=== PATIENT | female | born 2005 | race Two or more races ===

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

== ENCOUNTER 2025-08-31 13:37 | Emergency (ER) | payer OTHER, MEDICAID ==
[~2025-08-31] VITALS: Ht 154.9 cm; Wt 65.0 kg
[2025-08-31 14:20] LABS: Hematocrit 42.7 % (36.0-46.0); Hemoglobin 14.2 g/dL (12.2-16.2); Mean Corpuscular Hemoglobin 30.7 pg (28.0-32.0); Mean Corpuscular Volume 91.9 fL (80.0-100.0); Nucleated Red Blood Cells % 0.1 %
[2025-08-31 14:33] LABS: Chloride 104 mmol/L (98-107); Potassium 4.2 mmol/L (3.5-5.1); Sodium 142 mmol/L (136-145)
[2025-08-31 14:34] LABS: Anion Gap 9 (5-15); Calcium 9.6 mg/dL (8.7-10.4); Carbon Dioxide 29 mmol/L (20-31)
[2025-08-31 14:39] LABS: BUN/Creatinine Ratio 11.1 (10.0-20.0); Blood Urea Nitrogen 11 mg/dL (9-23); Glucose 103 mg/dL (74-106)
--- NOTE | 2025-08-31 14:40 | ED.PDOC ---
GI ASSESSMENT HPI Comments A 20 YEAR OLD FEMALE PRESENTS TO THE ED WITH COMPLAINT OF ABDOMINAL PAIN. PATIENT REPORTS THAT SHE HAS BEEN EXPERIENCING SUPRAPUBIC ABDOMINAL PAIN WITH ASSOCIATED RADIATION INTO HER LOWER BACK AND VAGINAL DISCHARGE FOR THE PAST 3 DAYS. PATIENT RELAYS THAT SHE RECENTLY TESTED POSITIVE FOR A STI. PATIENT STATES HER LMP WAS 2 WEEKS AGO. PATIENT DENIES FEVER, CHILLS, DYSURIA, HEMATURIA, FLANK PAIN, SHORTNESS OF BREATH, CHEST PAIN, NAUSEA, VOMITING, HEADACHE, OR OTHER COMPLAINTS. NO OTHER SYMPTOMS OR MODIFYING FACTORS AT THIS TIME. PATIENT IS ALERT, ORIENTED X 4, AND HAS STEADY GAIT. Chief Complaint: Abdominal Pain Time Seen by MD: 14:38 Reviewed Notes: Nurses Notes, Medications, Allergies Allergies: Coded Allergies: Amoxicillin (Verified Allergy, Unknown, 01/25/24) Home Meds Active Scripts Lactulose (Lactulose) 10 Gm/15 Ml Marissa, 30 ML PO BID, #250 ML Prov:MADELEINE BAILEY 08/31/25 Naproxen (Naproxen) 500 Mg Tab, 500 MG PO BID, #30 TAB Prov:MADELEINE BAILEY 08/31/25 Sulfamethoxazole-Trimethoprim (Bactrim) 1 Tab Tab, 1 TAB PO BID for 10 Days, #20 TAB Prov:XENIA SWEENEYA Q PAPIER MACHE' MOLDER 01/26/24 Ondansetron Odt 4MG Tab (ZOFRAN PO) 4 Mg Tb, 1 TAB PO Q8HPRN PRN, #10 TAB as needed for nausea vomiting ODT TAB-DISSOLVE IN MOUTH, THEN SWALLOW Prov:MARVIN SWEENEYALDA Q PAPIER MACHE' MOLDER 01/26/24 Ibuprofen (Ibuprofen) 600 Mg Tab, 1 TAB PO TID, #30 TAB as needed for fever or pain Prov:TOMEKA SWEENEY PAPIER MACHE' MOLDER 01/26/24 Information Source: Patient Mode of Arrival: Ambulatory Timing: Days Duration: Since onset Prehospital treatment: None Quality: Sharp Vomitus: Firm, Hard Stool: Normal Severity: Moderate Recent: None Recent Hx of: None Pain Location: Suprapubic Modifying Factors: Nothing Associated sign and symptoms: Constipation, Abdominal Pain Past Medical History PAST MEDICAL HISTORY: Anxiety Surgical History (Other): RIGHT KIDNEY SURGERY BRUSH MATERIAL PREPARER History: No Pertinent BRUSH MATERIAL PREPARER History Family History Family History: Reviewed,noncontributory to illness Social History Smoker: Non-Smoker Alcohol: Heavy Drugs: Cocaine Lives In: Home Constitutional: denies: chills, diaphoresis, fatigue, fever, malaise, sweats, weakness, others EENTM: denies: blurred vision, double vision, ear bleeding, ear discharge, ear drainage, ear pain, ear ringing, eye pain, eye redness, hearing loss, mouth pain, mouth swelling, nasal discharge, nose bleeding, nose congestion, nose pain, photophobia, tearing, throat pain, throat swelling, voice changes, others Respiratory: denies: cough, hemoptysis, orthopnea, SOB at rest, shortness of breath, SOB with excertion, stridor, wheezing, others Cardiovascular: denies: chest pain, dizzy spells, diaphoresis, Dyspnea on exertion, edema, irregular heart beat, left arm pain, lightheadedness, palpitations, PND, syncope, others Gastrointestinal: reports: abdominal pain, constipated; denies: abdomen di stended, blood streaked bowels, diarrhea, dysphagia, difficulty swallowing, hematemesis, melena, nausea, poor appetite, poor fluid intake, rectal bleeding, rectal pain, vomiting, others Genitourinary: reports: vagina discharge; denies: abnormal vagina bleeding, burning, dyspareunia, dysuria, flank pain, frequency, hematuria, incontinence, pain, , urgency, others Neurological: denies: dizziness, fainting, headache, left sided numbness, left sided weakness, numbness, paresthesia, pre-existing deficit, right sided numbness, right sided weakness, seizure, speech problems, tingling, tremors, weakness, others Musculoskeletal: reports: back pain, muscle pain; denies: gout, joint pain, joint swelling, muscle stiffness, neck pain, others Integumetry: denies: bruises, change in color, change in hair/nails, dryness, laceration, lesions, lumps, rash, wounds, others Allergic/Immunocompromised: denies: Difficulty Healing, Frequent Infections, Hives, Itching, others Hematologic/Lymphatic: denies: anemia, blood clots, easy bleeding, easy bruising, swollen glands, others Endocrine: denies: excessive hunger, excessive sweating, excessive thirst, excessive urination, flushing, intolerance to cold, intolerance to heat, unexplained weight gain, unexplained weight loss, others Psychiatric: denies: anxiety, bipolar disorder, depression, hopeless, panic disorder, schizophrenia, sleepless, suicidal, others All Other Systems: Reviewed and Negative Physical Exam General Appearance: No Apparent Distress, Normal HEENT: Normal ENT Inspection, PERRL/EOMI, Pharynx Normal, TMs Normal Neck: Full Range of Motion, Non-Tender, Normal, Normal Inspection Respiratory: Chest Non-Tender, Lungs Clear, No Accessory Muscle Use, No Respiratory Distress, Normal Breath Sounds Cardiovascular: No Edema, No JVD, No Murmur, No Gallop, Normal Peripheral Pulses, Regular Rate/Rhythm Breast Exam: Deferred Gastrointestinal: LLQ, No Organomegaly, No Pulsatile Mass, Normal Bowel Sounds, RLQ, Soft, Tenderness (LOWER ABD, NO GUARDING AND REBOUND TENDERNESS. ) Genitalia: Deferred Pelvic: Deferred Rectal: Deferred Extremities: No calf tenderness, Normal capillary refill, Normal inspection, Normal range of motion, Non-tender, No pedal edema Musculoskeletal : Apperance: Normal Neurologic: Alert, filling hauler weaving II-XII nml as Tested, No Motor Deficits, Normal Affect, Normal Mood, No Sensory Deficits Cerebellar Function: Normal Reflexes: Normal Skin: Dry, Normal Color, Warm Peripheral Pulses: 2+ carotid (R), 2+ carotid (L) Lymphatic: No Adenopathy Was a procedure done? Was a procedure done?: No GI differential Dx Differential Diagnosis: Appendicitis, Constipation, Gastritis/PUD, Gastroenteritis, Inflammatory BD, UTI, Urolithiasis X-Ray, Labs, Meds, VS Vital Signs Date Time Temp Pulse Resp B/P (MAP) Pulse Ox O2 Delivery O2 Flow Rate FiO2 08/31/25 13:44 98.3 94 15 128/78 98 98.3 Lab Test 08/31/25 14:36 08/31/25 14:13 Range/Units Urine Color Light-yellow Yellow Urine Clarity Clear Clear Urine pH 6.0 5.0-9.0 Urine Specific [place] 1.027 1.001-1.035 Urine Protein Negative Negative Urine Ketones Trace Negative Urine Blood Negative Negative /uL Urine Nitrite Negative Negative Urine Bilirubin Negative Negative Urine Urobilinogen Normal Negative mg/dL Urine Leukocyte Esterase Trace Negative /uL Urine RBC 2 0 - 4 /hpf Urine Microscopic WBC 3 0-5 /HPF Urine Squamous Epithelial Cells Mod <5 /hpf Urine Bacteria None seen None Seen /hpf Urine Glucose Normal Normal mg/dL White Blood Count 5.8 4.4-10.8 10^3/uL Red Blood Count 4.64 4.0-5.20 10^6/uL Hemoglobin 14.2 12.2-16.2 g/dL Hematocrit 42.7 36.0-46.0 % Mean Corpuscular Volume 91.9 80.0-100.0 fL Mean Corpuscular Hemoglobin 30.7 28.0-32.0 pg Mean Corpuscular Hemoglobin Concent 33.4 32.0-36.0 g/dL Red Cell Distribution Width 13.3 11.8-14.3 % Platelet Count 238 140-450 10^3/uL Mean Platelet Volume 7.7 6.9-10.8 fL Neutrophils (%) (Auto) 60.2 37.0-80.0 % Lymphocytes (%) (Auto) 25.9 10.0-50.0 % Monocytes (%) (Auto) 11.7 0.0-12.0 % Eosinophils (%) (Auto) 1.7 0.0-7.0 % Basophils (%) (Auto) 0.5 0.0-2.0 % Neutrophils # (Auto) 3.5 1.6-8.6 10 ^3/uL Lymphocytes # (Auto) 1.5 0.4-5.4 10 ^3/uL Monocytes # (Auto) 0.7 0-1.3 10 ^3/uL Eosinophils # (Auto) 0.1 0-0.8 10 ^3/uL Basophils # (Auto) 0 0-0.2 10 ^3/uL Nucleated Red Blood Cells 0.1 % Sodium Level 142 136-145 mmol/L Potassium Level 4.2 3.5-5.1 mmol/L Chloride Level 104 98-107 mmol/L Carbon Dioxide Level 29 20-31 mmol/L Anion Gap 9 5-15 Blood Urea Nitrogen 11 9-23 mg/dL Creatinine 0.99 0.550-1.02 mg/dL Glomerular Filtration Rate Calc 84 >90 mL/min BUN/Creatinine Ratio 11.1 10.0-20.0 Serum Glucose 103 74-106 mg/dL Calcium Level 9.6 8.7-10.4 mg/dL [facility] [id number] [facility] [id number] Ph: [phone] DIAGNOSTIC IMAGING Diagnostic Imaging Report : [id number] Signed PATIENT: MORSENATHALY Shah ACCT: [id number] UNIT: [id number] : 2005 LOC: ER ROOM / BED: / AGE / SEX: 20 / F ADM STATUS: REG ER SERVICE [id number] ORDERING PHYSICIAN: MADELEINE BAILEY PROCEDURE(s): ABPL - CT AB PEL WO CON-NO ORAL OR IV REASON: LOWER ABD PAIN TO LOWER BACK ORDER NUMBER(s): [id number], ACCESSION NUMBER(s): [id number] CLINICAL HISTORY: LOWER ABD PAIN TO LOWER BACK TECHNIQUE: CT of the abdomen and pelvis was performed without IV contrast. This exam was performed according to our departmental dose optimization program. Up-to-date CT equipment and radiation dose reduction techniques are utilized as appropriate. CTDI 9.6 DLP 511 COMPARISON: None FINDINGS: Abdomen/Pelvis: The spleen, pancreas, gallbladder, liver, adrenal glands, left kidney, and uterus are grossly unremarkable. The bladder is not well distended and therefore not well evaluated. The right kidney is poorly seen and appears atrophic at its upper 1/2. There are surgical clips present with a 3.1 cm hypodense lesion at the right upper pole, not adequately assessed. The abdominal aorta is normal in course and caliber. There are no significant atherosclerotic calcifications. There is no free intraperitoneal air or fluid. There is no enlarged abdominal pelvic lymph node. There is no bowel wall thickening or dilatation. The appendix is normal. There is a moderate amount of stool in the colon. Other: The imaged lower thorax is unremarkable. No acute osseous abnormality is evident. IMPRESSION: No acute noncontrast CT abnormality in the abdomen / pelvis. Atrophic right upper kidney with surgical clips and 3.1 cm hypodense lesion, not adequately assessed due to lack of IV contrast. Constipation. ATED BY: ELIZABETH BENITO MD DICTATED DATE/TIME: 08/31/25 152 SIGNED BY: ELIZABETH BENITO MD SIGNED DATE/TIME: 08/31/251525 CC: X-Ray, Labs, Meds, VS Comment EXTERNAL MEDICAL RECORDS REVIEWED: [NONE] INDEPENDENT HISTORIANS: [NONE] SOCIAL DETERMINANTS OF HEALTH: [NONE] LABS ORDERED: CBC, BMP, UA REVIEWED AND INTERPRETED RESULTS: CT ABD/PEL IMAGING ORDERED: CT ABD/PEL TREATMENTS ORDERED: NONE PROCEDURES PERFORMED: NONE CRITICAL CARE TIME: NONE I HAVE DISCUSSED THE PATIENT WITH THE ATTENDING PHYSICIAN DR. HAIRSTON AND HE AGR EES WITH THE PATIENT'S PLAN OF CARE AND DISPOSITION. BASED ON HISTORY OF PRESENT ILLNESS, AND PHYSICAL EXAM, PATIENT WILL BE DI SCHARGED HOME. DISCUSSED PLAN FOR DISCHARGE HOME WITH RX [NAPROXEN AND LACTULOSE ]. MEDICATION WARNINGS GIVEN. SHARED DECISION MAKING: DISCUSSED WITH PATIENT THAT THEIR WORKUP WAS NORMAL. PATIENT INSTRUCTED TO FOLLOW UP WITH PRIMARY CARE PROVIDER IN 1-2 DAYS FOR RE- EVALUATION OF SYMPTOMS. PATIENT VERBALIZES UNDERSTANDING TO RETURN TO ED FOR NEW OR WORSENING SYMPTOMS OR IF FOLLOW UP WITH PCP CANNOT BE OBTAINED. PATIENT FEELS COMFORTABLE GOING HOME AT THIS TIME. ALL QUESTIONS ADDRESSED AT TIME OF DISCHARGE. Time of 1ST Reevaluation: 15:00 Reevaluation 1ST: Unchanged Patient Education/Counseling: Diagnosis, Treatment Family Education/Counseling: No Family Present SEPSIS Sepsis Screen Date sepsis recognized/suspect: Aug 31, 2025 Time Sepsis recognized/suspect: 1346 Recent Procedure: No On Antibiotic Therapy: No Respiratory Rate >20: No Heart Rate >90: No Temp<36 C (96.8 F) or >38.3 C: No SBP <90 or MAP <65 mmHG: No New Acute Mental Status Change: No Is the patient on CPAP, BIPAP,: No Physician Orders Ct Ab Pel Wo Con-No Oral Or Iv (08/31/25 14:39) Vital Signs Date Time Temp Pulse Resp B/P (MAP) Pulse Ox O2 Delivery O2 Flow Rate FiO2 08/31/25 13:44 98.3 94 15 128/78 98 98.3 Laboratory Tests Test 08/31/25 14:13 White Blood Count 5.8 10^3/uL (4.4-10.8) Departure 1 Departure Time of Disposition: 16:00 Impression: Primary Impression: Constipation Qualified Codes: K59.00 - Constipation, unspecified Additional Impression: Lesion of right [place] kidney Disposition: HOME / SELF CARE / HOMELESS Condition: Stable Additional Instructions: FOLLOW-UP WITH PCP IN 1 TO 2 DAYS. TAKE MEDICATIONS PRESCRIBED. RETURN TO ED FOR ANY NEW OR WORSENING SYMPTOMS. e-Prescriptions Lactulose (Lactulose) 10 Gm/15 Ml Marissa 30 ML PO BID, #250 ML Prov: MADELEINE BAILEY 08/31/25 Naproxen (Naproxen) 500 Mg Tab 500 MG PO BID, #30 TAB Prov: MADELEINE BAILEY 08/31/25 Discharged With: Self Critical Care Note Critical Care Time?: No Stability Stability form required: No Heart Score Heart Score: Heart Score Response (Comments) Value History N/A 0 EKG N/A 0 Age N/A 0 Risk Factors N/A 0 Troponin N/A 0 Total 0 I personally scribed for MADELEINE BAILEY ([email or web address]) on 08/31/25 at 14:40. Electronically submitted by Eliseo Hernandez ([email or web address]). I personally scribed for MADELEINE BAILEY ([email or web address]) on 08/31/25 at 15:37. Electronically submitted by Eliseo Hernandez ([email or web address]). MADELEINE BAILEY Aug 31, 2025 14:40
[2025-08-31 14:55] LABS: Urine Protein, UAD Negative (Negative)
--- NOTE | 2025-08-31 15:29 | DVH ---
CLINICAL HISTORY: LOWER ABD PAIN TO LOWER BACK TECHNIQUE: CT of the abdomen and pelvis was performed without IV contrast. This exam was performed according to our departmental dose optimization program. Up-to-date CT equipment and radiation dose reduction techniques are utilized as appropriate. CTDI 9.6 DLP 511 COMPARISON: None FINDINGS: Abdomen/Pelvis: The spleen, pancreas, gallbladder, liver, adrenal glands, left kidney, and uterus are grossly unremarkable. The bladder is not well distended and therefore not well evaluated. The right kidney is poorly seen and appears atrophic at its upper 1/2. There are surgical clips present with a 3.1 cm hypodense lesion at the right upper pole, not adequately assessed. The abdominal aorta is normal in course and caliber. There are no significant atherosclerotic calcifications. There is no free intraperitoneal air or fluid. There is no enlarged abdominal pelvic lymph node. There is no bowel wall thickening or dilatation. The appendix is normal. There is a moderate amount of stool in the colon. Other: The imaged lower thorax is unremarkable. No acute osseous abnormality is evident. IMPRESSION: No acute noncontrast CT abnormality in the abdomen / pelvis. Atrophic right upper kidney with surgical clips and 3.1 cm hypodense lesion, not adequately assessed due to lack of IV contrast. Constipation.
[2025-08-31] MEDS ORDERED: NAPR-746 PO (15:51)
[2025-08-31] MEDS ORDERED: LACT10SO3 PO (15:51)
[2025-08-31 15:57] VITALS: BP 128/78; TEMP 98.3
[2025-08-31 16:02] VITALS: PULSE 94; RESP 15; O2SAT 98
== END 2025-08-31 16:05 | disposition home or self-care (01) ==
LOC: ER 13:37
DX: N28.9 Disorder of kidney and ureter, unspecified (principal); K59.00 Constipation, unspecified; Z88.0 Allergy status to penicillin; F41.9 Anxiety disorder, unspecified; Z79.899 Other long term (current) drug therapy; Z98.890 Other specified postprocedural states
CPT/HCPCS: 36415; 74176; 80048; 81001; 85025